=== PATIENT | female | born 1995 | race Two or more races ===

== ENCOUNTER 2016-06-14 22:33 | Emergency (ER) | payer MEDICAID ==
[2016-06-14 22:42] VITALS: BP 125/79; PULSE 72; RESP 20; TEMP 98.4; O2SAT 97
--- NOTE | 2016-06-14 23:00 | EDPHY ---
H & P Stated Complaint: back pain, lump on abd Source: Patient Exam Limitations: No limitations - Personal History LMP (Females 10-55): Over 28 Days Ago - Medical/Surgical History Hx Asthma: No Hx Chronic Respiratory Disease: No Hx Diabetes: No Hx Cardiac Disease: No Hx Renal Disease: No Hx Cirrhosis: No Hx Alcoholism: No Hx HIV/AIDS: No Hx Splenectomy or Spleen Trauma: No Other PMH: recurring ST - Social History Smoking Status: Never smoked Time Seen by Provider: 06/14/16 22:45 HPI/ROS: CHIEF COMPLAINT: back pain, lump in abdomen HISTORY OF PRESENT ILLNESS: 21-year-old female presents emergency department complaining of left-sided upper back pain that started while at work 2 weeks ago. Patient reports she was bending over lifting a box when she developed left -sided upper back pain. Patient reports this is worse with movement, worse with lifting and it is not improving. She denies trauma, no numbness or tingling in her hands. Patient reports a few days ago she noticed a lump in her left upper quadrant abdomen, it was tender when she would push on it. She denies nausea, vomiting or diarrhea. She left work tonight due to her back pain. REVIEW OF SYSTEMS: A comprehensive 10 point review of systems is otherwise negative aside from elements mentioned in the history of present illness. (Nia Diane) - Physical Exam Exam: Physical Exam Gen: Alert and Oriented, NAD HEENT: PERRL, moist mucous membranes NECK: no meningismus CV: regular rate and regular rhythm PULM: CTAB, no wheezes ABDOMEN: soft, obese, non tender to palpation, no masses, BS present BACK: Left-sided paraspinal and trapezius muscle tenderness to palpation No CVA tenderness NEURO: Neurologically grossly intact EXTREMITIES: normal appearing SKIN: no rash or break in skin on exposed skin PSYCH: answers questions appropriately. (Nia Diane) Constitutional: Initial Vital Signs Temperature (C) 36.9 C 06/14/16 22:39 Heart Rate 72 06/14/16 22:39 Respiratory Rate 20 06/14/16 22:39 Blood Pressure 125/79 H 06/14/16 22:39 O2 Sat (%) 97 06/14/16 22:39 O2 Delivery Mode Room Air Allergies/Adverse Reactions: No Known Allergies Allergy (Verified 06/14/16 22:39) Home Medications: Medication Instructions Recorded Clindamycin HCl [Clindamycin] 300 mg PO QID 10 Days 02/16/16 Hydrocodone/APAP 5/325 [[place] 1 - 2 tab PO Q4 #13 tab 02/16/16 5/325 (RX)] Methocarbamol [Robaxin-750] 750 - 1,500 mg PO QID PRN #20 06/14/16 tablet Medical Decision Making ED Course/Re-evaluation: 21-year-old female presents concerns about a lump that she felt of her abdomen 2 days ago and left-sided upper back pain. Patient has muscle spasms to her left paraspinal and left trapezius muscles. Her abdominal exam is benign, there are no masses, she is nontender. No nausea, vomiting or diarrhea. Patient is given a prescription for Robaxin, have recommended she follow up at [facility] and return for any worsening or new symptoms. Patient is comfortable with this plan. (Nia Diane) Differential Diagnosis: The differential diagnosis for the patient's back pain included but was not limited to musculo-skeletal pain, epidural abscess, herniated disk, spinal fracture, cauda equina and intra-abdominal causes including urinary system. ( Nia Diane) Other Provider: PHYSICIAN DOCUMENTATION: The patient was evaluated and managed by the Physician [employer]. My co- signature indicates that I have reviewed this chart and I agree with the findings and plan of care as documented. I am the secondary supervising physician. (Enedina Abreu) - Data Points Medications Given: Discontinued Medications Ibuprofen (Motrin) 600 mg PO EDNOW ONE Stop: 06/14/16 23:12 Last Admin: 06/14/16 23:36 Dose: 600 mg Methocarbamol (Robaxin) 750 mg PO EDNOW ONE Stop: 06/14/16 23:12 Last Admin: 06/14/16 23:37 Dose: 750 mg Departure - Departure Disposition: Home, Routine, Self-Care Clinical Impression: Back muscle spasm Condition: Good Instructions: Methocarbamol (By mouth), Muscle Spasm (ED), Back Pain (ED) Additional Instructions: Rest, ice, take 600mg of ibuprofen every 8 hours with food for 3-5 days as needed for pain. Take muscle relaxant as prescribed. Follow up at [facility] for symptoms that are not improving in the next 3-5 days. Return to the emergency department for any numbness, tingling, discoloration of you limb or questions, symptoms or other concerns. Referrals: [facility] [Outside] - As per Instructions Prescriptions: Methocarbamol [Robaxin-750] 750 - 1,500 mg PO QID PRN #20 tablet PRN Reason: Spasms
[2016-06-14] MEDS ORDERED: METHOCARBAMOL 750 MG TAB PO ONE (23:11)
[2016-06-14] MEDS ORDERED: IBUPROFEN 600 MG TAB PO ONE ×2 (23:11)
== END 2016-06-14 23:37 | disposition home or self-care (01) ==
DX: M62.830 Muscle spasm of back (principal)